=== PATIENT | female | born 1980 | race Caucasian/White ===

== ENCOUNTER 2021-07-08 19:26 | Emergency (ER) | payer BC ==
[~2021-07-08] VITALS: Ht 160 cm; Wt 90.9 kg
[2021-07-08 20:35] LABS: BASOPHILS # (AUTO) 0.1 X10'3 (0-0.2); BASOPHILS % (AUTO) 0.8 % (0-1); EOSINOPHILS # (AUTO) 0.1 X10'3 (0-0.9); EOSINOPHILS % (AUTO) 0.7 % (0-6); HEMATOCRIT 41.1 % (35.0-45.0); HEMOGLOBIN 13.9 g/dl (12.0-16.0); LYMPHOCYTES # (AUTO) 1.8 X10'3 (1.1-4.8); LYMPHOCYTES % (AUTO) 16.3 % (21-51); MEAN CORPUSCULAR HEMOGLOBIN 28.6 PG (27.0-31.0); MEAN CORPUSCULAR HGB CONC 33.8 g/dL (33.0-36.5); MEAN CORPUSCULAR VOLUME 84.5 FL (78-98); MEAN PLATELET VOLUME 7.6 FL (7.4-10.4); MONOCYTES # (AUTO) 0.6 X10'3 (0-0.9); MONOCYTES % (AUTO) 5.6 % (2-12); NEUTROPHILS # (AUTO) 8.2 X10'3 (1.8-7.7); NEUTROPHILS % (AUTO) 76.6 % (42-75); PLATELET COUNT 271 X10'3 (140-440); RED BLOOD COUNT 4.86 X10'6 (4.20-5.60); RED CELL DISTRIBUTION WIDTH 14.4 % (11.5-14.5); WHITE BLOOD COUNT 10.8 X10'3 (4.5-11.0)
[2021-07-08 20:47] LABS: ALANINE AMINOTRANSFERASE 65 U/L (12-78); ALBUMIN 3.3 G/DL (3.4-5.0); ALBUMIN/GLOBULIN RATIO 0.7 (1.1-1.5); ALKALINE PHOSPHATASE 88 IU/L (46-116); ANION GAP 12 (8-16); ASPARTATE AMINO TRANSFERASE 27 U/L (10-37); BILIRUBIN,TOTAL 0.2 MG/DL (0.1-1.0); BLOOD UREA NITROGEN 8 MG/DL (7-18); BUN/CREATININE RATIO 9.4 (6.6-38.0); CALCIUM 8.6 MG/DL (8.5-10.1); CHLORIDE 100 MMOL/L (99-107); CREATININE 0.85 MG/DL (0.40-0.90); POTASSIUM 3.9 MMOL/L (3.5-5.1); SODIUM 133 MMOL/L (135-145); TOTAL PROTEIN 7.8 G/DL (6.4-8.2); eGFR 74 ML/MIN
[2021-07-08 20:59] LABS: GLUCOSE 465 MG/DL (70-104)
[2021-07-08] MEDS ORDERED: normal saline 1000ml 1,000 ML IV ONE ×2 (21:25→23:25)
[2021-07-08] MEDS ORDERED: iohexol 350MG/ML 100ml bottle IV ONE (22:07)
[2021-07-08 22:12] VITALS: BP 122/74
[2021-07-08 22:17] LABS: URINE HCG NEGATIVE (NEG)
[2021-07-08 22:20] LABS: CLARITY,URINE SLIGHTLY CLOUDY (Clear); COLOR,URINE YELLOW (Yellow); GLUCOSE, URINE >=1000 mg/dl (Neg); KETONES,URINE NEGATIVE (Neg); LEUKOCYTE ESTERASE ,URINE NEGATIVE (Neg); NITRITES, URINE NEGATIVE (Neg); OCCULT BLOOD,URINE LARGE (Neg); PROTEIN,URINE NEGATIVE (Neg); UA COLLECTION TYPE CLN CATCH MIDSTREAM; UROBILINOGEN,URINE 0.2 E.U/dL (0.2-1.0)
[2021-07-08 22:34] LABS: WBC,URINE 0-4 /HPF (0-4)
[2021-07-08 22:35] LABS: BACTERIA,URINE 1+ /HPF (Neg); SQUAMOUS EPITHELIAL CELL,UR MODERATE /LPF (FEW)
[2021-07-08] MEDS ORDERED: ALBU8HFA PO (23:52)
== END 2021-07-09 00:07 | disposition home or self-care (01) ==
LOC: ER 19:27 → EEVIPCON 19:27 → ER 07-09 00:07
DX: U07.1 COVID-19 (principal); J12.82 Pneumonia due to coronavirus disease 2019; E11.65 Type 2 diabetes mellitus with hyperglycemia
CPT/HCPCS: 36415; 71045; 71275; 80053; 81001; 81025; 82948; 83605; 84145; 85025; 87040; 87077; 87186; 96360; 96361; 99285; J7030; Q9967

== ENCOUNTER 2023-03-16 22:15 | Emergency (ER) | payer BC, MEDICAID ==
[~2023-03-16] VITALS: Ht 160 cm; Wt 98.2 kg
[2023-03-16 22:26] VITALS: BP 152/96
[2023-03-16] MEDS ORDERED: bacitracin ointment unit dose packet TP ONE (23:45)
[2023-03-16] MEDS ORDERED: bacitracin 15gm ointment TP ONE (23:45)
== END 2023-03-17 00:16 ==
LOC: ER 22:16
DX: S91.111A Laceration without foreign body of right great toe without damage to nail, initial encounter (principal); S80.211A Abrasion, right knee, initial encounter; S11.81XA Laceration without foreign body of other specified part of neck, initial encounter; S11.91XA Laceration without foreign body of unspecified part of neck, initial encounter; Z88.0 Allergy status to penicillin; X58.XXXA Exposure to other specified factors, initial encounter; Y93.89 Activity, other specified; Y92.89 Other specified places as the place of occurrence of the external cause; Y99.8 Other external cause status
CPT/HCPCS: 12001; 99283

== ENCOUNTER 2023-04-21 09:15 | Emergency (ER) | payer MEDICAID ==
[~2023-04-21] VITALS: Ht 154.9 cm; Wt 63.6 kg
[2023-04-21 09:33] VITALS: BP 130/99; PULSE 122; RESP 18; TEMP 97.9; O2SAT 100
[2023-04-21] MEDS ORDERED: insulin regular, human 10 units/0.1 ml syringe SQ ONE (09:40)
== END 2023-04-21 09:55 | disposition home or self-care (01) ==
LOC: ER 09:15
DX: E11.65 Type 2 diabetes mellitus with hyperglycemia (principal); E11.9 Type 2 diabetes mellitus without complications; J45.909 Unspecified asthma, uncomplicated; Z59.00 Homelessness unspecified; Z56.0 Unemployment, unspecified; Z88.0 Allergy status to penicillin
CPT/HCPCS: 82948; 96372; 99283; J1815